=== PATIENT | female | born 1965 ===

== ENCOUNTER 2018-02-04 06:32 | Day surgery (SDC) | payer OTHER ==
[2018-02-04 07:00] VITALS: BMI 36.9
--- NOTE | 2018-02-04 07:51 | CP.SDSHP ---
Same Day Surgery H & P - History Proposed Procedure: colonoscopy Pre-Op Diagnosis: screening for colon cancer - Previous Medical/Surgical History Cardiac: Other (hypeerlipidemia) Endocrine/Metabolic: Diabetes, Obesity Previous Surgical History: Lap Cholecystectomy - Allergies Allergies: Allergies morphine Allergy (Intermediate, Verified 02/04/18 07:00) VOMITING - Physical Exam Vital Signs: Vital Signs 02/04/18 07:01 Temperature 97.8 F Pulse Rate 73 Respiratory 19 Rate Blood Pressure 121/84 O2 Sat by Pulse 98 Oximetry Mental Status: Alert & Oriented x3 Neuro: WNL Heart: WNL Lungs: WNL GI: WNL - Impression Impression: screening for colon cancer Pt. Evaluated Today:Candidate for Anesthesia & Procedure: Yes - Date & Time Date: 02/04/18 Time: 07:50 Short Stay Discharge - Short Stay Discharge Admitting Diagnosis/Reason for Visit: SCREENING Disposition: HOME/ ROUTINE
[2018-02-04] MEDS ORDERED: Propofol 10 mg/ml Inj (20 ML) ONE (08:02)
[2018-02-04] MEDS ORDERED: Lidocaine Hydrochloride 5 ML INJ ONE (08:02)
[2018-02-04 08:34] VITALS: TEMP 97.3; O2SAT 100
[2018-02-04 09:06] VITALS: RESP 12
[2018-02-04 09:48] VITALS: BP 100/57; PULSE 66
== END 2018-02-04 09:20 | disposition home or self-care (01) ==
LOC: C.ENDO 06:32
PROVIDERS: ATTEND Internal Medicine Gastroenterology
DX: Z12.11 Encounter for screening for malignant neoplasm of colon (principal); D12.5 Benign neoplasm of sigmoid colon; E11.9 Type 2 diabetes mellitus without complications; E66.9 Obesity, unspecified; K64.1 Second degree hemorrhoids
CPT/HCPCS: 45380; 82948; 88305; J2704

== ENCOUNTER 2018-05-27 06:44 | Day surgery (SDC) | payer OTHER ==
[2018-05-27 07:03] VITALS: O2SAT 100
--- NOTE | 2018-05-27 07:34 | CP.SDSHP ---
Same Day Surgery H & P - History Proposed Procedure: EGD Pre-Op Diagnosis: epigastric pain. heartburn refractory to therapy - Previous Medical/Surgical History Cardiac: Hypertension Endocrine/Metabolic: Diabetes, Obesity Misc: Other (colon polyps) Previous Surgical History: Lap Cholecystectomy - Allergies Allergies: Allergies morphine Allergy (Intermediate, Verified 02/04/18 07:00) VOMITING - Physical Exam Vital Signs: Vital Signs 05/27/18 06:59 Temperature 97.4 F L Pulse Rate 74 Respiratory 18 Rate Blood Pressure 122/64 O2 Sat by Pulse 100 Oximetry Mental Status: Alert & Oriented x3 Neuro: WNL Heart: WNL Lungs: WNL GI: WNL - Impression Impression: epigastric pain. heartburn refractory to therapy Pt. Evaluated Today:Candidate for Anesthesia & Procedure: Yes - Date & Time Date: 05/27/18 Time: 07:33 Short Stay Discharge - Short Stay Discharge Admitting Diagnosis/Reason for Visit: EPIGASTRIC PAIN,HEARTBURN,MORBID (SEVERE) OBESITY Disposition: HOME/ ROUTINE
[2018-05-27] MEDS ORDERED: Lactated Ringer's 500 ML IV ONE (08:05)
[2018-05-27] MEDS ORDERED: Propofol 10 mg/ml Inj (20 ML) ONE (08:07)
[2018-05-27 08:46] VITALS: TEMP 97.8
[2018-05-27 09:38] VITALS: BP 113/55; PULSE 71; RESP 16
== END 2018-05-27 09:35 | disposition home or self-care (01) ==
LOC: C.ENDO 06:44
PROVIDERS: ATTEND Internal Medicine Gastroenterology
DX: K21.0 Gastro-esophageal reflux disease with esophagitis (principal); K31.7 Polyp of stomach and duodenum; K44.9 Diaphragmatic hernia without obstruction or gangrene; K29.50 Unspecified chronic gastritis without bleeding; E66.01 Morbid (severe) obesity due to excess calories; I10 Essential (primary) hypertension; E11.9 Type 2 diabetes mellitus without complications
CPT/HCPCS: 43239; 82948; 88305; 88312; 88313; 88342; J2001; J2704; J7120